=== PATIENT | male | born 1970 | race American Indian/Alaskan Native ===

== ENCOUNTER 2018-12-16 15:35 | Emergency (ER) | payer OTHER ==
[~2018-12-16] VITALS: Ht 170.2 cm; Wt 65.8 kg
[~2018-12-16 15:35] MED LIST: AUGMENTIN 500-500 MG PO; AUGMENTIN 875-1 EACH PO; MELOXICAM7.5 MG PO; NAPROSYN500 MG PO; NORCO 10-325 T1 EACH PO; NORCO 7.5-3251 EACH PO; ONDANSETRON ODT4 MG SL; ROBAXIN500 MG PO; SEPTRA DS TABL1 EACH PO; ULTRAM50 MG PO
[2018-12-16] MEDS ORDERED: IBUPROFEN600 MG PO (18:00)
== END 2018-12-16 18:19 | disposition home or self-care (01) ==
LOC: ED 15:35
PROC: 2W3CX1Z Immobilization of Right Lower Arm using Splint (ICD-10-PCS; principal; 2018-12-16)
DX: S63.501A Unspecified sprain of right wrist, initial encounter (principal); Z87.891 Personal history of nicotine dependence; W01.0XXA Fall on same level from slipping, tripping and stumbling without subsequent striking against object, initial encounter
CPT/HCPCS: 29125; 73110; 99283-25

== ENCOUNTER 2019-07-24 14:12 | Emergency (ER) | payer OTHER ==
[~2019-07-24] VITALS: Ht 170.2 cm; Wt 65.8 kg
[~2019-07-24 14:12] MED LIST changes: +IBUPROFEN600 MG PO
[2019-07-24] MEDS ORDERED: KEFLEX500 MG PO (15:22)
== END 2019-07-24 15:35 | disposition home or self-care (01) ==
LOC: ED 14:12
PROC: 0HQNXZZ Repair Left Foot Skin, External Approach (ICD-10-PCS; principal; 2019-07-24)
DX: S91.312A Laceration without foreign body, left foot, initial encounter (principal); Z87.891 Personal history of nicotine dependence; W26.8XXA Contact with other sharp object(s), not elsewhere classified, initial encounter
CPT/HCPCS: 12002; 90471; 90715; 99282-25

== ENCOUNTER 2021-09-07 06:30 | Emergency (ER) | payer OTHER ==
[~2021-09-07] VITALS: Ht 170.2 cm; Wt 68.0 kg
[~2021-09-07 06:30] MED LIST changes: +KEFLEX500 MG PO
[2021-09-07] MEDS ORDERED: MORPHINE SULFAT15 MG PO (07:51)
[2021-09-07] MEDS ORDERED: ONDANSETRON ODT4 MG PO (07:51)
== END 2021-09-07 08:56 | disposition home or self-care (01) ==
LOC: ED 06:30
DX: N13.2 Hydronephrosis with renal and ureteral calculous obstruction (principal); G43.909 Migraine, unspecified, not intractable, without status migrainosus; Z87.891 Personal history of nicotine dependence
CPT/HCPCS: 74177; 80053; 81001; 83690; 85025; 99284-25; J1170; J1885; J2405; J7030; Q9967

== ENCOUNTER 2022-05-28 18:52 | Emergency (ER) | payer OTHER ==
[~2022-05-28] VITALS: Ht 170.2 cm; Wt 68.0 kg
[~2022-05-28 18:52] MED LIST changes: +MORPHINE SULFAT15 MG PO; +ONDANSETRON ODT4 MG PO
[2022-05-28] MEDS ORDERED: CYCLOBENZAPRINE10 MG PO (19:44)
== END 2022-05-28 20:32 | disposition home or self-care (01) ==
LOC: ED 18:52
DX: S39.012A Strain of muscle, fascia and tendon of lower back, initial encounter (principal); X58.XXXA Exposure to other specified factors, initial encounter; G43.909 Migraine, unspecified, not intractable, without status migrainosus; Z87.891 Personal history of nicotine dependence
CPT/HCPCS: 96372; 99283; J1170; J2550

== ENCOUNTER 2025-06-12 16:15 | Emergency (ER) | payer OTHER ==
[~2025-06-12] VITALS: Ht 170.2 cm; Wt 64.5 kg
[~2025-06-12 16:15] MED LIST changes: +CYCLOBENZAPRINE10 MG PO
[2025-06-12 16:30] LABS: BASOPHILS 0.8 % (0.2-1.2); EOSINOPHILS 2.5 % (0.8-7.0); LYMPHOCYTES 35.5 % (21.8-53.1); MCH 31.6 PG (25.7-32.2); MCHC 33.7 g/dL (32.3-36.5); MCV 93.7 fL (79.0-92.2); MONOCYTES 7.5 % (5.3-12.2); NEUTROPHILS 53.5 % (34.0-67.9); RBC 4.91 M/uL (4.63-6.08)
[2025-06-12] MEDS ORDERED: SODIUM CHLORIDE 0.9% 1,000 ML IV ONE (16:30)
[2025-06-12] MEDS ORDERED: KETOROLAC TROMETHAMINE 15 MG/ML VIAL IV ONE (16:30)
[2025-06-12] MEDS ORDERED: MORPHINE SULFATE 4 MG/ML VIAL IV ONE (16:30)
[2025-06-12] MEDS ORDERED: OLANZapine 10 MG TABDIS PO ONE (16:45)
[2025-06-12 16:46] LABS: ALT (SGPT) 33.0 U/L (14-59); AST (SGOT) 27.0 U/L (15-37); GLOMERULAR FILTRATION RATE,EST 63.0 mL/min (>60); PROTEIN, TOTAL 8.2 g/dL (6.4-8.2); UREA NITROGEN 12.0 mg/dL (7-18)
[2025-06-12] MEDS ORDERED: fentaNYL citrate 100 MCG/2 ML VIAL IV ONE (17:30)
[2025-06-12] MEDS ORDERED: TAMSULOSIN HCL 0.4 MG CAP PO ONE (17:30)
[2025-06-12 18:48] LABS: BLOOD/HGB, URINE LARGE (Negative); KETONE, URINE SMALL (Negative); LEUK ESTERASE, URINE NEGATIVE (negative); NITRITE, URINE NEGATIVE (negative)
[2025-06-12 18:57] LABS: BACTERIA, URINE NONE SEEN /hpf (negative); CASTS, URINE NONE SEEN \\lpf; CRYSTALS, URINE CALCIUM OXALATE 2+ (0-1+); EPITHELIAL CELLS, URINE SQUAMOUS 1+ /lpf (0-1+); REFLEX CULTURE, URINE No (No)
[2025-06-12 19:03] LABS: AMPHETAMINES, URINE NEGATIVE (NEGATIVE); BARBITURATES, URINE NEGATIVE (NEGATIVE); BENZODIAZEPINE, URINE NEGATIVE (NEGATIVE); CANNABINOID, URINE POSITIVE (NEGATIVE); COCAINE, URINE NEGATIVE (NEGATIVE); ECSTASY, URINE NEGATIVE (NEGATIVE); FENTANYL, URINE POSITIVE (NEGATIVE); METHADONE, URINE NEGATIVE (NEGATIVE); OPIATES, URINE POSITIVE (NEGATIVE); OXYCODONE, URINE NEGATIVE (NEGATIVE); PHENCYCLIDINE, URINE NEGATIVE (NEGATIVE)
[2025-06-12] MEDS ORDERED: PERCOCET 5-3251 EACH PO (19:27)
[2025-06-12] MEDS ORDERED: FLOMAX0.4 MG PO (19:27)
[2025-06-12] MEDS ORDERED: OXYCODONE/ACETAMINOPHEN 1 TAB HOME.PACK PO ONE (19:45)
[2025-06-12 19:49] VITALS: BP 146/84
== END 2025-06-12 20:02 | disposition home or self-care (01) ==
LOC: ED 16:15
PROVIDERS: Emergency Medicine
DX: N13.2 Hydronephrosis with renal and ureteral calculous obstruction (principal); Z87.891 Personal history of nicotine dependence
CPT/HCPCS: 36415; 74177; 80053; 80307; 81001; 83690; 85025; 96375; 99284-25; A9270; G0480; J1885; J2270; J2405; J3010; J7030; Q9967